=== PATIENT | female | born 1960 | race Hispanic/Latino ===

== ENCOUNTER 2023-05-11 23:07 | Observation (INO) | payer BC ==
[~2023-05-11 23:07] MED LIST: Iopamidol 370 76% 100 ML VIAL ONE
[2023-05-11 23:45] LABS: #Basophils 0.1 10x3/uL (0.0-0.2); #Eosinphils 0.1 10x3/uL (0.0-0.5); #Monocytes 0.8 10x3/uL (0.0-1.1); #Neutrophils 9.2 10x3/uL (1.5-8.4); %Basophils 0.5 % (0.0-2.0); %Eosinophils 0.5 % (0.0-6.0); %Lymphocytes 21.1 % (18.0-47.0); %Monocytes 6.4 % (0.0-10.0); %Neutrophils 71.1 % (40.0-75.0); Hemoglobin 12.2 g/dL (12.0-15.5); Mean Corpuscular HGB CONC 33.9 g/dL (32.0-36.0); Mean Corpuscular Volume 91.4 fl (81.6-98.3); Mean Platelet Volume 9.4 fl (7.4-10.4); Platelet Count 439 10x3/uL (150-450); RBC Distribution Width 11.8 % (11.5-14.5); Red Blood Cell (RBC) Count 3.94 10x6/uL (3.90-5.03); White Blood Cell (WBC) Count 12.9 10x3/uL (3.5-10.5)
[2023-05-11] MEDS ORDERED: Ondansetron PF 4 MG/2 ML Vial ONE (23:50)
[2023-05-11] MEDS ORDERED: Aspirin 325 MG TAB ONE (23:50)
[2023-05-11 23:56] LABS: ALT (SGPT) 28 U/L (8-55); AST (SGOT) 24 U/L (5-34); Albumin 4.3 g/dL (3.5-5.0); Alkaline Phosphatase 114 U/L (40-110); Anion Gap 20 mmol/L (10-20); BUN (Urea Nitrogen) 19 mg/dL (9.8-20.1); Bilirubin, Total 0.3 mg/dL (0.2-1.2); Calc. Creatinine Clearance 0 mL/min (70-130); Calcium 8.7 mg/dL (7.8-10.44); Carbon Dioxide 19 mmol/L (22-29); Chloride 106 mmol/L (98-107); Estimated GFR 84; Glucose 146 mg/dL (70-105); Potassium 4.5 mmol/L (3.5-5.1); Protein, Total 7.3 g/dL (6.0-8.3); Sodium 140 mmol/L (136-145)
[2023-05-12 00:02] LABS: Troponin I Less than 0.010 ng/mL (< 0.028)
[2023-05-12] MEDS ORDERED: Acetaminophen 500 MG TAB ONE (02:31)
[2023-05-12 02:34] LABS: Bilirubin Neg (Negative); Blood, Urine Negative (Negative); Clarity Clear (Clear); Glucose, Urine (Dipstick) Normal (Negative); Ketone, Urine Negative (Negative); Leukocyte Negative (Negative); Nitrite Negative (Negative); Protein, Urine (Dipstick) 15 mg/dl (Neg-Trace); Specific Gravity, Urine 1.005 (1.005-1.030); Urobilinogen Normal mg/dL (Less than 2); pH, Urine 6.5 (5.0-9.0)
[2023-05-12] MEDS ORDERED: Dextrose 50% Abboject 50 ML SYRINGE SLOW IVP PRN (02:34)
[2023-05-12] MEDS ORDERED: Senokot S 8.6-50 MG TAB PO PRN (02:34)
[2023-05-12] MEDS ORDERED: Guaifenesin DM 100-10/5 ML UDCUP PO PRN (02:34)
[2023-05-12] MEDS ORDERED: Glucagon 1 MG/ML KIT IM PRN (02:34)
[2023-05-12] MEDS ORDERED: Acetaminophen 325 MG TAB PO PRN (02:34)
[2023-05-12] MEDS ORDERED: Calcium Carbonate 500 MG ChewTAB PO PRN (02:34)
[2023-05-12] MEDS ORDERED: Ondansetron PF 4 MG/2 ML Vial IVP PRN (02:34)
[2023-05-12] MEDS ORDERED: HumaLOG 300 UNITS/3 ML VIAL SC PRN (02:34)
[2023-05-12] MEDS ORDERED: Dextrose 5% in Water 1,000 ML IV PRN (02:34)
[2023-05-12] MEDS ORDERED: HYDROcodone/Acetaminophen 5/325 mg Tablet PO PRN (02:34)
[2023-05-12 02:39] LABS: Bacteria/HPF Rare-Few HPF (None Seen); CAUTI Indications for Culture Pelvic or flank pain; RBC/HPF None Seen HPF (0-3); Squamous Epithelial 0-3 HPF (0-3); WBC/HPF 0-3 HPF (0-3)
[2023-05-12 02:40] LABS: Urine Culture Reflex No No
[2023-05-12] MEDS ORDERED: Nitroglycerin 0.4 MG TAB (25 Tab Bottle) SL PRN (02:40)
[2023-05-12] MEDS ORDERED: Famotidine/PF 20 mg/2ml Vial ONE (03:09)
[2023-05-12 03:14] VITALS: BMI 30.2
[2023-05-12] MEDS ORDERED: Famotidine/PF 20 mg/2ml Vial SLOW IVP SCH (03:30)
[2023-05-12 04:29] LABS: #Eosinphils 0.1 10x3/uL (0.0-0.5); #Monocytes 0.7 10x3/uL (0.0-1.1); %Basophils 0.4 % (0.0-2.0); %Eosinophils 0.8 % (0.0-6.0); %Lymphocytes 31.6 % (18.0-47.0); %Monocytes 7.1 % (0.0-10.0); %Neutrophils 59.8 % (40.0-75.0); Hematocrit 32.8 % (34.9-44.5); Hemoglobin 10.9 g/dL (12.0-15.5); Mean Corpuscular HGB CONC 33.2 g/dL (32.0-36.0); Mean Corpuscular Hemoglobin 30.3 pg (27.0-33.0); Mean Corpuscular Volume 91.1 fl (81.6-98.3); Mean Platelet Volume 9.5 fl (7.4-10.4); Platelet Count 392 10x3/uL (150-450); RBC Distribution Width 11.8 % (11.5-14.5)
[2023-05-12 04:39] LABS: CRP (Inflammatory) 1.56 mg/dL (= or < 0.5)
[2023-05-12 04:54] LABS: SARS-CoV-2 NAA Rapid Test Not Detected (NotDetected)
[2023-05-12 04:58] LABS: Free T4 (Free Thyroxine) 1.23 ng/dL (0.70-1.48); Thyroid Stimulating Hormone 0.0103 uIU/mL (0.35-4.94)
[2023-05-12] MEDS ORDERED: Levothyroxine Sodium 25 MCG TAB PO SCH (06:00)
[2023-05-12] MEDS ORDERED: Metoprolol Tartrate 25 MG TAB ONE (07:52)
[2023-05-12] MEDS ORDERED: Aspirin Chewable 81 MG TAB ONE (07:52)
[2023-05-12 08:28] LABS: Troponin I Less than 0.010 ng/mL (< 0.028)
[2023-05-12] MEDS ORDERED: Gabapentin 100 MG CAP PO SCH (09:00)
[2023-05-12] MEDS ORDERED: Lantus 1000 UNITS/10 ML VIAL SC SCH (09:00)
[2023-05-12] MEDS ORDERED: Aspirin 81 mg Enteric Coated Tablet PO SCH (09:00)
[2023-05-12] MEDS ORDERED: Lisinopril 5 MG TAB PO SCH (09:00)
[2023-05-12] MEDS ORDERED: Metoprolol Tartrate 25 MG TAB PO SCH (09:00)
[2023-05-12 11:06] VITALS: BP 119/72; TEMP 98.2
[2023-05-12] MEDS ORDERED: Simvastatin 10 MG TAB PO SCH (21:00)
== END 2023-05-12 10:00 | disposition home or self-care (01) ==
LOC: CSHERS 23:07 → CSHERHOLD 05-12 02:34 → INTOOBSV 05-12 02:34
PROVIDERS: ADMIT Student in an Organized Health Care Education/Training Program; ATTEND Internal Medicine
DX: R07.9 Chest pain, unspecified (principal); R00.0 Tachycardia, unspecified; D72.829 Elevated white blood cell count, unspecified; I10 Essential (primary) hypertension; E11.9 Type 2 diabetes mellitus without complications; E03.9 Hypothyroidism, unspecified; E78.5 Hyperlipidemia, unspecified; Z79.890 Hormone replacement therapy; Z79.899 Other long term (current) drug therapy; Z79.4 Long term (current) use of insulin
CPT/HCPCS: 36415; 36416; 71045; 71275; 80053; 81001; 83690; 83880; 84439; 84443; 84484; 85025; 85379; 86140; 93005; 96372; 96375; G0378; J1650; J1815; J2405; Q9967; S0028